=== PATIENT | female | born 1950 | race Caucasian/White ===

== ENCOUNTER 2017-07-30 08:29 | Observation (INO) | payer OTHER ==
[~2017-07-30] VITALS: Ht 160 cm; Wt 88.7 kg
[~2017-07-30 08:29] MED LIST: ADDE30TA PO; COZA50TA PO; LINA145C PO; NEXI40CA PO; PROV10TA PO
[2017-07-30] MEDS ORDERED: METOPROLOL TARTRATE 25 MG TAB PO PRN (09:00)
[2017-07-30] MEDS ORDERED: HEPARIN SODIUM - SQ 10,000 UNITS/ML VIAL SQ SCH (09:00)
[2017-07-30] MEDS ORDERED: SODIUM CHLORID 0.9% 500 ML IV PRN (09:00)
[2017-07-30] MEDS ORDERED: POVIDONE IODINE 5% (ANTISEPSIS KIT) 4 APPLICATIONS EACH NARE PRN (09:00)
[2017-07-30] MEDS ORDERED: INSULIN HUMAN REGULAR 1,000 UNITS/10 ML VIAL SQ PRN (09:00)
[2017-07-30] MEDS ORDERED: ceFAZolin 2 GM/DEX PREMIX 50 ML IV SCH (09:00)
[2017-07-30] MEDS ORDERED: LACTATED RINGER'S 1000 ML IV PRN (09:00)
[2017-07-30] MEDS ORDERED: CHLORHEXIDINE GLUCONATE 2 % 1 PACK (2 CLOTHS) TOPICAL PRN (09:00)
[2017-07-30] MEDS ORDERED: CLON1TAB PO (09:27)
[2017-07-30] MEDS ORDERED: ACETAMINOPHEN 1000 MG/100 ML 100 ML IV ONE (11:52)
[2017-07-30] MEDS ORDERED: PROPOFOL 200 MG/20 ML AMP IV ONE (12:00)
[2017-07-30] MEDS ORDERED: ceFAZolin INJ 1,000 MG VIAL IV ONE (12:00)
[2017-07-30] MEDS ORDERED: VECURONIUM BROMIDE 20 MG VIAL IV ONE (12:00)
[2017-07-30] MEDS ORDERED: PHENYLEPH/NS 1000 MCG/10 ML SYR IV ONE (12:00)
[2017-07-30] MEDS ORDERED: LIDOCAINE HCL 1% PF 5 ML SYRINGE OTHER ONE (12:00)
[2017-07-30] MEDS ORDERED: ONDANSETRON HCL 4 MG/2 ML VIAL IV ONE (12:00)
[2017-07-30] MEDS ORDERED: ROCURONIUM INJ 50 MG/5 ML SYRINGE IV PUSH ONE (12:00)
[2017-07-30] MEDS ORDERED: DEXAMETHASONE SOD PHOS 4 MG/ML VIAL IV ONE (12:00)
[2017-07-30] MEDS ORDERED: SUCCINYLCHOLINE CHLORIDE 100 MG/5 ML SYRINGE IV PUSH ONE (12:00)
[2017-07-30] MEDS ORDERED: LIDOCAINE 1%/EPINEPHrine 1:100,000 SOLN 50 ML VIAL ONE (12:26)
[2017-07-30] MEDS ORDERED: SUGAMMADEX SODIUM 200 MG/2 ML VIAL IV PUSH ONE (14:54)
[2017-07-30] MEDS ORDERED: METHYLENE BLUE 10 MG/ML VIAL OTHER ONE (15:30)
[2017-07-30] MEDS ORDERED: SODIUM CHLORIDE 0.9% FLUSH 10 ML FLUSH IV FLUSH PRN (17:00)
[2017-07-30] MEDS ORDERED: oxyCODONE/ACETAMINOPHEN 5 MG/325 MG TAB PO PRN (17:00)
[2017-07-30] MEDS ORDERED: ONDANSETRON HCL 4 MG/2 ML VIAL IVP PRN (17:00)
[2017-07-30] MEDS ORDERED: diphenhydrAMINE HCL 25 MG CAP PO PRN (17:00)
[2017-07-30] MEDS ORDERED: DO NOT ADM ANY ANTICOAGULANT DRUGS PRN (17:03)
[2017-07-30] MEDS ORDERED: MORPHINE SULFATE 4 MG/ML INJ ONE (17:13)
[2017-07-30] MEDS ORDERED: MIDAZOLAM HCL 2 MG/2 ML VIAL ONE (17:13)
[2017-07-30] MEDS: D5-1/2 NS + KCL 20 MEQ INJ 1,000 ML IV SCH (17:15)
[2017-07-30] MEDS: KETOROLAC TROMETHAMINE 30 MG/ML (IVP) VIAL IVP SCH ×2 (17:20→23:19)
[2017-07-30 18:39] VITALS: BP 158/88; PULSE 11; PULSE 113; RESP 18; TEMP 97.6; O2SAT 95
--- NOTE | 2017-07-30 18:59 | MP ---
cc: Lupe Mao MD, Julie MD Quaning,Vernon FINLEY DATE OF OPERATION: 07/30/2017 DATE OF PROCEDURE: 07/30/2017 PREOPERATIVE DIAGNOSIS: 1. Postmenopausal bleeding. 2. Endometrial hyperplasia. 3. History of premenopausal breast cancer. POSTOPERATIVE DIAGNOSES: 1. Postmenopausal bleeding. 2. Endometrial hyperplasia. 3. History of premenopausal breast cancer. 4. Extensive intraperitoneal and pelvic adhesions. PROCEDURE PERFORMED: Robotic-assisted laparoscopic hysterectomy, bilateral salpingo-oophorectomy with extensive lysis of adhesions. ESTIMATED BLOOD LOSS: 250 mL. IV FLUIDS: 1700 mL. URINE OUTPUT: 400 mL. PATIENT HISTORY: A 66-year-old female with postmenopausal bleeding and a thickened endometrial stripe. Biopsy had shown simple hyperplasia. She was placed on progesterone, but continued to have some intermittent bleeding. This was of concern to her and her caregivers. Furthermore, she was diagnosed with premenopausal breast cancer. All of these things were taken into consideration. She was in favor of more definitive surgery to stop the symptoms to ensure there was no pelvic malignancy and to remove the ovaries, given her history of breast cancer. She is seen again in the preop holding area with her family. Findings are again reviewed. The plan of care is discussed. Questions were asked and answered. She expressed good understanding and would like to move forward with surgery. FINDINGS: Upon entry into the peritoneal cavity, there were adhesions noted in the right lower quadrant and region of the cecum where she had a prior appendectomy, history of ruptured appendix. There were some adhesions where the colon was adherent to the left pelvic sidewall. The colon was markedly redundant as the descending and sigmoid colon was folded back on itself and that it entered the pelvis, went into the cul-de-sac, traversed the pelvic brim and then circled back down to the cul-de-sac with a markedly redundant sigmoid, some diverticulum, but no evidence of diverticulitis. The other area of extensive adhesions was the anterior uterine wall was stuck to the abdominal wall. The bladder was plastered to the uterus and cervix with extensive adhesions thought probably related to prior section and/or her previous peritonitis. There were no areas of impending intestinal obstruction. There were no implants on the bowel. The omentum, large and small bowel mesentery appeared normal in that there were no peritoneal implants. There was no appreciable adenopathy in the pelvis with the paraaortic region. The liver diaphragm edges were smooth. The uterus was symmetrically enlarged, sounded to 10 cm, had a gross appearance of possibly adenomyosis, maybe small leiomyomas. The tubes and ovaries grossly appeared normal. The uterus once removed was inspected. Evaluation of the endometrium showed only simple hyperplasia. No cellular atypia. No evidence of malignancy. STATEMENT OF COMPLEXITY/MODIFIER: A significant amount of surgical time, an estimated 90 minutes, was required to lyse adhesions, to gain safe entry into the peritoneal cavity, to free the uterus from the abdominal wall and freed the bladder from the uterus and cervix, to restore normal anatomy and accomplish surgical objectives. Modifier should be applied accordingly. DESCRIPTION OF PROCEDURE: The patient taken to the operating room and placed in dorsal lithotomy position, after general endotracheal anesthesia was administered. Timeout was undertaken. She was identified by site recognition and hospital ID bracelet, and the proposed procedure was reviewed and confirmed. She was carefully positioned in padded Lenny stirrups. Her arms were padded and secured to the sides. She was further secured to the operating table with egg crate padding and tape in a cross test over the shoulder fashion. All sites noted to be properly aligned with no malalignment or pressure points. She was prepped and draped in sterile fashion, placed in high lithotomy position. The cervix was grasped. Uterine cavity was sounded and sounded to 10 cm. Cervix dilated. A standard VCare manipulator was inserted and secured in usual fashion. Sin catheter placed in the bladder. She was returned to low lithotomy position. Change of sterile gloves was undertaken. We confirmed she had an orogastric tube in the stomach on suction. With manual elevation of the abdominal wall and direct laparoscopic visualization, a 5 mm cannula was placed in the left upper quadrant. An atraumatic entry was confirmed and carbon dioxide gas was insufflated into the peritoneal cavity, and under laparoscopic visualization, a 10 mm cannula was placed in the midline above the umbilicus and an 8 mm cannula placed in the right upper quadrant. Adhesiolysis was initiated using blunt and sharp dissection to mobilize the omentum and loops of small bowel that were fixed in the pelvis and additional adhesiolysis was carried out to mobilize the cecum to bring it from the pelvis up above the pelvic brim and to remove adhesions from around her prior appendectomy site. The small bowel was folded back on its mesenteric root. Three Ray-Alcira sponges were placed around the root of the small bowel mesentery after the anatomy were explored and after peritoneal washings were obtained for cytology. The robotic system was brought into the operative field, attached in the usual fashion. Monopolar scissors, fenestrated bipolar forceps and ProGrasp manipulators placed in arms number 1, 2 and 3 respectively and I took my place at the surgeon's console. Additional adhesions were taken down to mobilize the colon from against the left pelvic sidewall and to free up some adhesions from the posterior cul-de-sac. The right round ligament, isolated, cauterized, transected. The anterior and posterior leafs of the broad ligament were opened. The right ureter was identified and the right infundibulopelvic ligament was isolated. The intervening peritoneum was opened. The infundibulopelvic ligament was dissected to the level of the pelvic brim where it was cauterized and transected. Posterior peritoneum opened along the right side of the uterus and cervix, and dissection was initiated to try to free the bladder flap. The peritoneum was opened after sharp dissection and focal cautery was required to separate the uterus from its attachments to the anterior abdominal wall. A plane was identified beneath the bladder and this was carried down with blunt and sharp dissection to dissect the right side of the bladder off the lower uterine segment and cervix; however, the upper portion of the bladder was still densely adherent with the broad-based adhesions. The uterine vessels were adequately skeletonized and they were cauterized on the right side. Attention was directed toward the left side, where additional lysis of adhesion was carried out to further mobilize the colon and to free it from its attachments to the left pelvic sidewall to isolate and expose the left adnexa and the retroperitoneal structures. The round ligament on the left side was isolated, cauterized and transected. The anterior and posterior leafs of the broad ligament were opened. The left ureter was identified. The left infundibulopelvic ligament was isolated. The intervening peritoneum was opened and the infundibulopelvic ligament was cauterized at the level of the pelvic brim and transected. Posterior peritoneum opened along the left side of the uterus and cervix and then the left uterine vessels were skeletonized and further dissection was carried out from the left where the adhesions were most dense between the bladder and the uterus. Sharp dissection was used to isolate the bands of filmy adhesions. The more dense adhesions were isolated and then taken down with sharp dissection along the wall of the uterus in a stepwise fashion and dissection beneath the bladder was carried out in a plane that connected with the dissection plane from the other side and the remainder of the adhesions were taken down with sharp dissection. Further attention now allowed the bladder flap to be taken down below the level of the cervix, and the left uterine vessels were skeletonized and now cauterized. The uterus blanched as the main blood supply had now been secured. The left uterine vessels were transected. The cardinal, paracervical and uterosacral ligaments were isolated, cauterized and transected in a stepwise fashion, thereby freeing the attachments along the left side of the uterus and cervix. Attention was redirected toward the right side, where the right uterine vessels were transected. The cardinal, paracervical and uterosacral ligaments were isolated, cauterized and transected in a stepwise fashion, thereby freeing the attachments along the right side of the uterus and cervix. Circumferential colpotomy was carried out, the cervix from the upper vagina. The specimen was withdrawn transvaginally, which included uterus, cervix, tubes and ovaries and a pneumo-occluder balloon was placed in the vagina to maintain pneumoperitoneum. Instruments 1 and 3 exchanged for needle drivers as a 0 Vicryl suture was introduced. Vaginal cuff was closed starting at the left corner full thickness closure, incorporating the edge of the uterosacral ligament and the posterior peritoneum, tied securely. The closure was held on countertraction as a running full thickness closure was carried across the vaginal cuff to the contralateral corner where it was similarly tied, secured and the needle was cut and removed. Pelvis was thoroughly irrigated. Small bleeders were then made hemostatic with bipolar cautery. To check the integrity of the bladder, the bladder was filled with saline dyed with methylene blue. There was a good margin between the vaginal cuff and the bladder edge. There was good peristalsis of ureters bilaterally. There were no defects in the bladder; however, there were some areas where the overlying adipose tissue overlying the bladder was thinned out, such that a blue hue was visible in the dome in the midportion of the bladder as a result of the dense adhesions and adhesiolysis. Accordingly, this area was reinforced with a running 2-0 Vicryl suture to reapproximate the overlying adipose tissue and peritoneum to reinforce the bladder wall and then tied securely and the needle was cut and removed. The pathology came back showing benign findings. There was good hemostasis. It was felt that all reasonable surgical objectives had been completed and attention was directed toward closing. The robotic instruments were removed. The robotic system was disengaged from the operative field. I reentered the bedside under sterile condition. Each of the 3 Ray-Alcira sponges that had been placed were removed individually, each inspected and noted to be removed in their entirety. Preliminary counts were correct. There were no remaining foreign objects in the peritoneal cavity. Hemostatic Winifred powder was placed across the vaginal cuff and pelvic sidewalls. The 12 mm cannula was removed. The fascial defect was closed with 0 Vicryl sutures using a needle pass fascial closure apparatus. They were tied securely which rendered the fascia completely airtight and hemostatic. The remaining cannulas were withdrawn. Carbon dioxide gas was removed. The 3-0 Vicryl, subcutaneous 3-0 Vicryl subcuticular and Steri-Strips were used to close these incisions. She was returned to dorsal lithotomy position. Pelvic exam confirmed, the vaginal cuff was well supported. No vaginal lacerations. No remaining foreign objects in the vagina. Preliminary and final counts were correct. She was returned to dorsal supine position and was pending reversal of anesthesia, when I left the operating room to precede her to the Postanesthesia Care Unit. MD JAYNE Philippe/JESUS , 05:48 PM , 06:58 PM
[2017-07-30] MEDS: oxyCODONE/ACETAMINOPHEN 5 MG/325 MG TAB PO PRN ×2 (19:16→23:32)
[2017-07-30 20:00] VITALS: BP 142/87; PULSE 103; PULSE 97; RESP 16; TEMP 98; O2SAT 97
[2017-07-30] MEDS: DEXTROAMPHETAMINE/AMPHETAMINE 30 MG TAB PO SCH (21:00)
[2017-07-30] MEDS: SODIUM CHLORIDE 0.9% FLUSH 10 ML FLUSH IV FLUSH SCH (21:01)
[2017-07-30] MEDS: clonazePAM 1 MG TAB PO SCH (21:01)
[2017-07-31] VITALS: BP 136/68; PULSE 105; PULSE 107; RESP 16; TEMP 98.4; O2SAT 95
[2017-07-31] MEDS: D5-1/2 NS + KCL 20 MEQ INJ 1,000 ML IV SCH (03:32)
[2017-07-31] MEDS: oxyCODONE/ACETAMINOPHEN 5 MG/325 MG TAB PO PRN ×3 (03:34→13:43)
[2017-07-31 04:00] VITALS: BP 133/77; PULSE 100; PULSE 105; RESP 15; TEMP 98; O2SAT 94
[2017-07-31 05:30] LABS: AUTOMATED NEUTROPHIL # 9.4 TH/MM3 (1.8-7.7); BASOPHIL % 0.1 % (0.0-2.0); HEMATOCRIT 35.5 % (35.0-46.0); HEMOGLOBIN 12.2 GM/DL (11.6-15.3); LYMPHOCYTE # 0.6 TH/MM3 (1.0-4.8); MEAN CELL VOLUME 94.2 FL (80.0-100.0); MEAN CORPUSCULAR HEMOGLOBIN 32.2 PG (27.0-34.0); MEAN CORPUSCULAR HGB CONC 34.2 % (32.0-36.0); MEAN PLATELET VOLUME 7.8 FL (7.0-11.0); MONO % 4.3 % (0.0-8.0); MONOCYTE # 0.5 TH/MM3 (0-0.9); NEUT % 89.6 % (16.0-70.0); PLATELET COUNT 237 TH/MM3 (150-450); RED BLOOD COUNT 3.77 MIL/MM3 (4.00-5.30); RED CELL DISTRIBUTION WIDTH 13.9 % (11.6-17.2); WHITE BLOOD COUNT 10.4 TH/MM3 (4.0-11.0)
[2017-07-31] MEDS: KETOROLAC TROMETHAMINE 30 MG/ML (IVP) VIAL IVP SCH (05:48)
[2017-07-31 05:53] LABS: BICARBONATE 23.6 MEQ/L (21.0-32.0); CALCIUM 8.1 MG/DL (8.5-10.1); CREATININE 0.86 MG/DL (0.50-1.00)
[2017-07-31 07:00] VITALS: BP 137/89; PULSE 110; RESP 16; TEMP 98.5; O2SAT 95
[2017-07-31] MEDS ORDERED: OXYC1TAB63 PO (07:44)
[2017-07-31] MEDS ORDERED: CLON1TAB PO (07:44)
--- NOTE | 2017-07-31 08:08 | MD ---
cc: Lupe Mao MD,Meagan Singh,Vernon FINLEY DATE OF DISCHARGE: 07/31/2017 DATE OF ADMISSION: 07/30/2017 DATE OF DISCHARGE: 07/31/2017 PROCEDURE: On 07/30/2017, robotic-assisted laparoscopic hysterectomy, bilateral salpingo-oophorectomy, and extensive lysis of adhesions. DIAGNOSES: Endometrial hyperplasia, history of premenopausal breast cancer and extensive intraperitoneal and pelvic adhesions. HOSPITAL COURSE: She did well in early postop period. She was hemodynamically stable, tolerating oral intake. Sin catheter is to be left indwelling because of excess scar tissue taken down by the bladder with oversewing of the bladder wall. Ins and outs 2500/1050. Labs this morning, H and H 12.2 and 0.2. BUN and creatinine 7 and 0.86. PHYSICAL EXAMINATION: VITAL SIGNS: Afebrile, pulse ranging from 90-115, respirations 16-18, blood pressure 133-158/68-88, O2 saturations greater than or equal to 97% while awake, 94% while asleep. GENERAL: Alert and oriented x 3. LUNGS: Clear except for mild basilar rales. CARDIOVASCULAR: Regular rate and rhythm. ABDOMEN: Soft. Incisions are clean and dry. GYNECOLOGIC: No bleeding. Sin catheter in place. EXTREMITIES: Nontender. ASSESSMENT: Postoperative day #1, doing well in early postoperative period. The preliminary pathology, steps were taken, findings the time of surgery were reviewed. The extensive adhesions, especially in the pelvis, around the uterus, bladder and abdominal wall were described. Oversewing of the bladder to ensure healing explained and the need for indwelling Sin catheter discussed. Activities, restrictions reviewed. She expressed good understanding after questions were asked and answered. PLAN: Therefore, I anticipate she will be ready for discharge to home. Sin catheter be changed to a leg bag and she will be taught self-care for home use. She is to let us know if she has problems and feels that she would benefit from home health. She is to continue the once daily antibiotic while there is an indwelling Sin catheter. She is to call our office to schedule a followup in 10 days, at which time she will have a postop check and the catheter will be removed. She will contact our office at any time should she have any questions between now and the time of followup. She is to resume her prior medications and a prescription is provided for Percocet. MD JAYNE Philippe/JESUS , 07:49 AM , 08:07 AM JEAN
[2017-07-31] MEDS ORDERED: Linaclotide (Linzess) 145 MCG PO SCH (09:00)
[2017-07-31] MEDS ORDERED: LOSARTAN 50 MG TAB PO SCH (09:00)
[2017-07-31] MEDS ORDERED: NITROFURANTOIN MONOHYD MACROCR 100 MG CAP PO SCH (09:00)
[2017-07-31] MEDS: SODIUM CHLORIDE 0.9% FLUSH 10 ML FLUSH IV FLUSH SCH (09:00)
[2017-07-31] MEDS ORDERED: PANTOPRAZOLE SOD 40 MG DELAYED RELEASE TAB PO SCH (09:00)
[2017-07-31] MEDS: DEXTROAMPHETAMINE/AMPHETAMINE 30 MG TAB PO SCH (09:24)
[2017-07-31] MEDS: clonazePAM 1 MG TAB PO SCH (09:24)
[2017-07-31 11:50] VITALS: BP 153/93; PULSE 97; RESP 16; TEMP 98.6; O2SAT 94
[2017-07-31 12:15] VITALS: PULSE 86
== END 2017-07-31 15:07 | disposition home or self-care (01) ==
LOC: HSDC 08:29 → HCIN 18:10
PROVIDERS: ADMIT Obstetrics & Gynecology Gynecologic Oncology; ATTEND Obstetrics & Gynecology Gynecologic Oncology
DX: N95.0 Postmenopausal bleeding (principal); N85.00 Endometrial hyperplasia, unspecified; N73.6 Female pelvic peritoneal adhesions (postinfective); Z85.3 Personal history of malignant neoplasm of breast; N80.0 Endometriosis of uterus; N70.11 Chronic salpingitis; K66.0 Peritoneal adhesions (postprocedural) (postinfection)
CPT/HCPCS: 00840; 58552; 80048; 85025; 86850; 86900; 86901; 88112; 88307; 88331; 94150; 96365; 96375; 96376; G0378; J0131; J0330; J0690; J1100; J1644; J1885; J2250; J2270; J2370; J2405; J3010; J3480; J7120; S2900